=== PATIENT | female | born 1970 | race Two or more races ===

== ENCOUNTER 2021-11-16 15:54 | Emergency (ER) | payer MEDICAID, OTHER ==
[~2021-11-16] VITALS: Ht 165.1 cm; Wt 77.1 kg
[2021-11-16 16:20] VITALS: BP 164/96
== END 2021-11-16 16:36 | disposition left against medical advice (07) ==
LOC: EDBD 15:54 → ER 15:54
DX: R51.9 Headache, unspecified (principal); Z53.21 Procedure and treatment not carried out due to patient leaving prior to being seen by health care provider
CPT/HCPCS: 93005

== ENCOUNTER 2023-11-25 10:25 | Inpatient (IN) | payer MEDICAID ==
[~2023-11-25] VITALS: Ht 165.1 cm; Wt 91.8 kg
[2023-11-25 11:10] LABS: Basophils # (auto) 0 10 ^3/uL (0-0.2); Basophils % (auto) 0.5 % (0.0-2.0); Eosinophils # (auto) 0.1 10 ^3/uL (0-0.8); Eosinophils % (auto) 1.7 % (0.0-7.0); Hematocrit 42.4 % (36.0-46.0); Lymphocytes # (auto) 1.8 10 ^3/uL (0.4-5.4); Mean Corpuscular Hemoglobin 30.7 pg (28.0-32.0); Monocytes # (auto) 0.5 10 ^3/uL (0-1.3); Monocytes % (auto) 8.7 % (0.0-12.0); Neutrophils # (auto) 3.1 10 ^3/uL (1.6-8.6); Neutrophils % (auto) 56.1 % (37.0-80.0); Nucleated Red Blood Cells % 0.1 %; Red Blood Cells 4.56 10^6/uL (4.0-5.20); Red Cell Distribution Width 14.1 % (11.8-14.3); White Blood Cell 5.5 10^3/uL (4.4-10.8)
[2023-11-25 11:19] LABS: Chloride 109 mmol/L (98-107); Potassium 4.2 mmol/L (3.5-5.1); Sodium 138 mmol/L (136-145)
[2023-11-25 11:20] LABS: Anion Gap 5 (5-15); Calcium 9.1 mg/dL (8.5-10.1); Carbon Dioxide 24 mmol/L (20-30)
[2023-11-25 11:25] LABS: Blood Urea Nitrogen 12 mg/dL (9-23); Glucose 88 mg/dL (74-106)
[2023-11-25 11:51] LABS: Urine Bacteria FEW /hpf (None Seen); Urine Blood Negative /uL (Negative); Urine Clarity Turbid (Clear); Urine Color Light-Yellow (Yellow); Urine Mucus FEW (None Seen); Urine Protein, UAD Negative (Negative); Urine Urobilinogen Normal (Negative); Urine WBC 29 /hpf (0 - 5); Urine pH 5.5 (5.0-9.0)
[2023-11-25 13:00] VITALS: PULSE 64; RESP 14; O2SAT 98
[2023-11-25] MEDS: cloNIDine HCL 0.1 MG TAB PO ONE (14:16)
[2023-11-25] MEDS: cefTRIAXone 1GM/50ML D5W 50 ML IV ONE (14:16)
[2023-11-25] MEDS ORDERED: ONDANSETRON HCL 4 MG/2 ML VIAL IV PRN (15:45)
[2023-11-25] MEDS ORDERED: DOCUSATE SOD 100 MG CAP PO PRN (15:45)
[2023-11-25] MEDS ORDERED: NITROGLYCERIN 0.4 MG SL TAB SL PRN (15:45)
[2023-11-25] MEDS ORDERED: MORPHINE SULFATE INJ 2 MG/ml SYRG IV PRN (15:45)
[2023-11-25] MEDS ORDERED: HYDROcodone-ACET 5/325MG TAB PO PRN (15:45)
[2023-11-25] MEDS: SODIUM CHLORIDE 0.9% 1,000 ML IV ONE (16:00)
[2023-11-25 19:30] VITALS: PULSE 66; RESP 15; O2SAT 92
[2023-11-25 23:20] VITALS: BP 132/79; PULSE 77; RESP 20; TEMP 98.8; O2SAT 94
[2023-11-26] VITALS (8 sets, daily range): BP systolic 132–179; BP diastolic 63–113; PULSE 61–79; RESP 16–20; TEMP 36.6; O2SAT 94–100
[2023-11-26 06:28] LABS: Basophils # (auto) 0 10 ^3/uL (0-0.2); Basophils % (auto) 0.4 % (0.0-2.0); Eosinophils # (auto) 0.1 10 ^3/uL (0-0.8); Eosinophils % (auto) 2.3 % (0.0-7.0); Hematocrit 40.4 % (36.0-46.0); Hemoglobin 13.5 g/dL (12.2-16.2); Lymphocytes # (auto) 2.1 10 ^3/uL (0.4-5.4); Lymphocytes % (auto) 40.5 % (10.0-50.0); Mean Corpuscular Hemoglobin 30.8 pg (28.0-32.0); Mean Corpuscular Hgb Conc. 33.3 g/dL (32.0-36.0); Mean Corpuscular Volume 92.5 fL (80.0-100.0); Monocytes # (auto) 0.5 10 ^3/uL (0-1.3); Monocytes % (auto) 9.5 % (0.0-12.0); Neutrophils # (auto) 2.4 10 ^3/uL (1.6-8.6); Neutrophils % (auto) 47.3 % (37.0-80.0); Red Blood Cells 4.36 10^6/uL (4.0-5.20); White Blood Cell 5.2 10^3/uL (4.4-10.8)
[2023-11-26 06:30] LABS: Alanine Aminotransferase 12 U/L (7-40); Alkaline Phosphatase 73 U/L (46-116); Anion Gap 7 (5-15); Aspartate Aminotransferase 16 U/L (13-40); BUN/Creatinine Ratio 19.7 (10.0-20.0); Blood Urea Nitrogen 14 mg/dL (9-23); Calcium 9.2 mg/dL (8.5-10.1); Carbon Dioxide 24 mmol/L (20-30); Chloride 109 mmol/L (98-107); Glucose 95 mg/dL (74-106); LDL Cholesterol 109 mg/dL (< 100); Potassium 4.1 mmol/L (3.5-5.1); Sodium 140 mmol/L (136-145); Triglycerides 114 mg/dL (< 150)
[2023-11-26 06:31] LABS: Albumin 3.9 g/dL (3.2-4.8); Bilirubin, Total 0.5 mg/dL (0.2-1.0); Cholesterol 169 mg/dL (< 200); HDL Cholesterol 44 mg/dL (40-59); Total Protein 6.3 g/dL (5.7-8.2)
[2023-11-26] MEDS: hydrALAZINE HCL 20 MG/ML VL IV PRN (06:33)
[2023-11-26] MEDS: LISINOPRIL 5 MG TAB PO SCH (10:38)
[2023-11-26] MEDS: ACETAMINOPHEN 325 MG TAB PO PRN (10:38)
[2023-11-26] MEDS: hydroCHLOROthiazide 25 MG TAB PO SCH (10:40)
[2023-11-26] MEDS: cefTRIAXone 1GM/50ML D5W 50 ML IV SCH (10:40)
[2023-11-26] MEDS ORDERED: LISI-275 PO (13:19)
[2023-11-26] MEDS: LORazepam 0.5 MG TAB PO ONE (14:06)
[2023-11-28 09:20] LABS: Hepatitis B Surface Antigen Negative (Negative)
[2023-11-28 09:38] LABS: Hepatitis C Antibody Negative (Negative)
== END 2023-11-26 19:30 | disposition home or self-care (01) | DRG 199 ==
LOC: ER 10:25 → EDBD 10:25 → TELE 15:36 → TELE-WESTW 22:12
PROVIDERS: ADMIT Internal Medicine Pulmonary Disease; ATTEND Internal Medicine Pulmonary Disease
DX: I16.0 Hypertensive urgency (principal); E66.9 Obesity, unspecified; N30.00 Acute cystitis without hematuria; I10 Essential (primary) hypertension; Z59.00 Homelessness unspecified; Z86.73 Personal history of transient ischemic attack (TIA), and cerebral infarction without residual deficits; Z83.3 Family history of diabetes mellitus; Z68.33 Body mass index [BMI] 33.0-33.9, adult
CPT/HCPCS: 36415; 71045; 80048; 80053; 80061; 81001; 83036; 83880; 84443; 84484; 85025; 86803; 87340; G0378

== ENCOUNTER 2024-01-01 13:29 | Emergency (ER) | payer MEDICAID ==
[~2024-01-01 13:29] MED LIST: LISI-275 PO
== END 2024-01-01 14:39 | disposition left against medical advice (07) ==
LOC: EDBD 13:29 → ER 13:29
DX: M25.552 Pain in left hip (principal); Z53.21 Procedure and treatment not carried out due to patient leaving prior to being seen by health care provider